=== PATIENT | female | born 1980 | race Two or more races ===

== ENCOUNTER 2020-06-07 05:53 | Day surgery (SDC) | payer OTHER ==
[~2020-06-07 05:53] MED LIST: INVEGA IM; LEXAPRO5 MG PO; SYNTHROID75 MCG PO
== END 2020-06-07 14:50 | disposition home or self-care (01) ==
LOC: CIR.AMB 05:53
PROVIDERS: ATTEND Surgery
DX: D24.1 Benign neoplasm of right breast (principal); Z20.828 Contact with and (suspected) exposure to other viral communicable diseases